=== PATIENT | male | born 1980 | race Caucasian/White ===

== ENCOUNTER → 2017-01-09 | Outpatient (CLI) | payer BC ==
[~2017-01-09] MED LIST: ENOX30IN4 SQ; OXYC2.5T3 PO; PRED-301 PO; TAMS0.4C38 PO
--- NOTE | 2017-01-09 19:50 | DIAGNOSTIC IMAGING REPORT ---
RIGHT LOWER EXTREMITY VENOUS DOPPLER CLINICAL HISTORY: Right lower leg pain. COMPARISON STUDY: Right lower extremity venous Doppler November 22, 2015. TECHNIQUE: Sonography of the deep venous system of the right lower extremity was performed. Compression and augmentation were evaluated. FINDINGS: Material adherent to the wall the right common femoral vein is unchanged since exam of November 23, 2015. There is linear echogenic material within the right superficial femoral vein which is unchanged. These vessels were compressible. There is no evidence of acute deep venous thrombus within the right lower extremity. IMPRESSION: 1. No evidence of acute deep venous thrombus within the right lower extremity. 2. No change in suspected chronic thrombus within the right common femoral and superficial femoral vein since exam of November 22, 2015. Electronically signed by: Hema Castro M.D. 01/09/2017 7:49 PM Dictated Date/Time: 01/09/2017 7:47 PM
== END | disposition home or self-care (01) ==
LOC: C.ULTR 19:04
PROVIDERS: ATTEND Family Medicine
DX: M79.661 Pain in right lower leg (principal)

== ENCOUNTER → 2017-11-04 | Outpatient (CLI) | payer OTHER ==
--- NOTE | 2017-11-04 16:04 | DIAGNOSTIC IMAGING REPORT ---
CT SCAN OF THE ABDOMEN AND PELVIS WITHOUT IV CONTRAST CLINICAL HISTORY: Abdominal abscess. COMPARISON STUDY: Abdominal CT dated 11/22/2015. TECHNIQUE: CT scan of the abdomen and pelvis is performed from the lung bases to the proximal femora. Images are reviewed in the axial, sagittal, and coronal planes. IV contrast was not administered for this examination as per the referring clinician. Note that the examination was performed and significant suboptimal fashion without oral and IV contrast. A dose lowering technique was utilized adhering to the principles of ALARA. CT DOSE: 277.41 mGy.cm FINDINGS: Lung bases: The heart is normal in size and without pericardial effusion. The lung bases are clear. Liver: The unenhanced liver is normal in size, contour, and attenuation. There is no intrahepatic biliary ductal dilatation. A 2.0 cm in the right hepatic lobe on image #55 and a 1.3 cm hypodensity in the right lobe seen on image #156 are unchanged from 2016 and compared to the prior study likely represent hemangiomas. A 1.2 cm cyst is noted in the left lobe. Gallbladder: Unremarkable. Spleen: Normal in size and attenuation. Pancreas: Unremarkable. Adrenal glands: Unremarkable. Kidneys: The unenhanced kidneys are normal in size and without hydronephrosis. A 3 mm nonobstructing calculus is seen in the left kidney. There is no evidence of contour deforming renal mass lesion. Abdominal vasculature: The abdominal aorta is normal in course and caliber. 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 No bowel obstruction is seen. The appendix is surgically absent. Peritoneum: There is no intraperitoneal free air or abdominal ascites. No intraperitoneal fluid collection is identified on this unenhanced examination. Lymphadenopathy: None. Pelvic viscera: The bladder, prostate, and seminal vesicles are grossly normal as visualized but suboptimally assessed. Skeletal structures: No lytic or blastic lesions are seen. Soft tissues: There is a density identified in the right lower quadrant abdominal wall adjacent to the ostomy site. This may represent a small drain. No organized fluid collection is clearly seen. Small foci of subcutaneous gas identified in this region with trace fluid. The largest pocket measures 1.5 cm as seen on image #241. There is no intraperitoneal extension. IMPRESSION: 1. Significantly suboptimal examination without oral and IV contrast. 2. There is no convincing evidence of intraperitoneal abscess on this unenhanced examination. 3. A percutaneous density is seen within the right lower quadrant abdominal wall adjacent to the ostomy site and may represent a drain. There are foci of gas within the adjacent soft tissues as well as mild stranding and trace fluid. No organized collection is clearly seen at this site. Clinical correlation will be required. 4. Again seen are changes from proctocolectomy with right lower quadrant ostomy. No bowel obstruction is seen. 5. Small nonobstructing right renal calculus. 6. Additional findings as above. Electronically signed by: Ramiro Miguel M.D. 11/04/2017 4:03 PM Dictated Date/Time: 11/04/2017 3:52 PM
== END | disposition home or self-care (01) ==
LOC: C.CTS 15:38
PROVIDERS: ATTEND Colon & Rectal Surgery
DX: R19.00 Intra-abdominal and pelvic swelling, mass and lump, unspecified site (principal); Z09 Encounter for follow-up examination after completed treatment for conditions other than malignant neoplasm

== ENCOUNTER 2018-01-13 22:02 | Emergency (ER) | payer OTHER ==
[~2018-01-13] VITALS: Ht 174 cm; Wt 63.3 kg
[2018-01-13 22:10] VITALS: Ht 174 cm; Wt 63.3 kg
--- NOTE | 2018-01-13 22:27 | EMERGENCY ROOM VISIT NOTE ---
History First contact with patient: 22:17 Chief Complaint: NOSE BLEED (MINOR) Stated Complaint: NOSE BLEED History of Present Illness The patient is a 37 year old male who presents to the Emergency Room with complaints of nosebleed. Patient states it is now trying to stop. Patient states he has a history of nosebleeds due to use of Coumadin due to a prior blood clot as well as prior history of ITP. Patient states his platelets were just checked the end of November at his routine follow-up and were between 45 and 50,000. States this is where they routinely are for him. Patient states he has not noticed bleeding from any other site. Patient states he will intermittently get nosebleeds but they usually resolve after about 10 minutes. Patient states tonight the bleeding seemed to last longer and be more profuse. Patient states he takes little to blood in the back of his mouth but did not otherwise swallow a lot of blood. Denies nausea, vomiting, trouble breathing. Patient denies any recent fevers, congestion, allergy symptoms including rhinitis or nasal congestion. Patient states he has not been blowing his nose more frequently. Patient denies any other recent dietary change, no recent antibiotics, no change in his usual Coumadin dosing. Patient states his INR was checked 2 weeks ago and was 2.4, last month he was 2.5. Patient has not noticed bleeding from any other site including no black or bloody stools, no hemoptysis, no hematuria. Patient on chronic low-dose steroids, prednisone 2.5 mg. No recent change. No recent use of any acid reducing locations including H2 blockers. Review of Systems See HPI for pertinent positives & negatives. A total of 6 systems reviewed and were otherwise negative. Past Medical/Surgical History Medical Problems: (1) Pelvic hematoma, male Surgical Problems: (1) History of ileostomy (2) History of resection of rectum Family History FH: cancer Factor V deficiency ITP Social History Smoking Status: Never Smoker Alcohol Use: occasionally Drug Use: none Marital Status: Housing Status: lives with family Occupation Status: employed Current/Historical Medications Scheduled Enoxaparin (Lovenox), MG SQ Q12H Prednisone (Prednisone), 15 MG PO DAILY Tamsulosin Hcl (Flomax), 0.4 MG PO DAILY Scheduled PRN Oxycodone/Acetaminophen 2.5MG/325MG (Percocet 2.5MG/325MG), 1 TAB PO DIRECTED PRN for Pain Physical Exam Vital Signs Date Time Temp Pulse Resp B/P (MAP) Pulse Ox O2 Delivery O2 Flow Rate FiO2 01/13/18 23:08 36.7 64 18 116/53 95 01/13/18 22:10 36.7 64 18 116/53 95 Room Air Physical Exam GENERAL: alert, well appearing, well nourished, no distress, non-toxic EYE EXAM: normal conjunctiva, PERRL and EOM's grossly intact OROPHARYNX: no exudate, no erythema, lips, buccal mucosa, and tongue normal and mucous membranes are moist, patient with fresh clot noted in the nose, no active bleeding, abnormal septal region which patient states is chronic, no blood in the posterior oropharynx NECK: supple, no nuchal rigidity, no adenopathy, non-tender LUNGS: Clear to auscultation. Normal chest wall mechanics HEART: no murmurs, S1 normal and S2 normal ABDOMEN: abdomen soft, non-tender, normo-active bowel sounds, no masses, no rebound or guarding. SKIN: no rashes and no bruising UPPER EXTREMITIES: upper extremities are grossly normal. LOWER EXTREMITIES: No pitting edema. NEURO EXAM: Normal sensorium, cranial nerves II-XII grossly intact, normal speech, no gross weakness of arms, no gross weakness of legs. Gross sensation intact. Medical Decision & Procedures Medications Administered Medications (Trade) Dose Ordered Sig/Blue Route Start Time Stop Time Status Last Admin Dose Admin Oxymetazoline HCl (Afrin 0.05% Nasal [place]) 1 sprays NOW ONCE NA 01/13/18 22:45 01/13/18 22:46 DC 01/13/18 22:45 1 SPRAYS Medical Decision Patient with no recurrent bleeding here. Discussed with patient results of [id number] INR 2.3. Offered recheck the patient's CBC for his platelet count , he declined. Patient with no lightheadedness or dizziness, no nausea or vomiting, no chest pain or trouble breathing. Patient hemodynamically stable, no orthostatic symptoms. Patient given a nasal clamp and Afrin to go home in case of rebleeding. Discussed with patient close monitoring and if he has recurrent or persistent bleeding that he should return to the ER and would require additional blood work and possible other interventions at that time. Patient verbalized understanding. Of note patient does state he has a hole in the inferior aspect of his nasal septum from prior significant dehydration during an episode of a Crohn's flare. Patient does not chronically follow up with an ear nose and throat doctor. Discussed with him if he has persistent or significant nasal bleeding this may be required. Patient well-appearing here throughout, especially in light of chronic conditions. All questions answered at bedside. Patient verbalized understanding of symptoms to watch and return for, risks associated with his conditions, he verbalized understanding was agreeable with plan. Medication Reconcilliation Current Medication List: was personally reviewed by me Blood Pressure Screening Patient's blood pressure: Normal blood pressure Impression Primary Impression: Epistaxis Additional Impressions: Anticoagulated on Coumadin Chronic ITP (idiopathic thrombocytopenia) Departure Information Dispostion Home / Self-Care Referrals Nicholas Mariscal MD (PCP) Patient Instructions [facility] Additional Instructions Please avoid any frequent nose blowing, or picking of the nose. Please monitor for bleeding from any other site. Please continue your regular medications as prescribed. Please make a note that your INR tonight was 2.3. If you have any recurrent episodes of bleeding, you may try 2 squirts of Afrin in each nostril and placing the nasal clamp. Please leave this on for 10-15 minutes while sitting up. You may also try placing an ice pack across the bridge of the nose. If you have persistent bleeding, feel lightheaded or dizzy, began to have trouble breathing, nausea or vomiting, or any other new concerns, please return to the ER immediately. Problem Qualifiers
[2018-01-13] MEDS ORDERED: OXYMETAZOLINE HCL 0.05% NA SPR 15 ML BTL ONE (22:45)
[2018-01-13 23:08] VITALS: BP 116/53; PULSE 64; TEMP 36.7; O2SAT 95
== END 2018-01-13 23:09 | disposition home or self-care (01) ==
LOC: C.EDB 22:03 → C.EDC 23:09
DX: R04.0 Epistaxis (principal); Z79.01 Long term (current) use of anticoagulants; D69.3 Immune thrombocytopenic purpura; Z79.52 Long term (current) use of systemic steroids; Z79.899 Other long term (current) drug therapy